=== PATIENT | female | born 1975 | race Caucasian/White ===

== ENCOUNTER 2019-06-07 21:36 | Emergency (ER) | payer OTHER ==
[2019-06-07] MEDS ORDERED: ASPIRIN 81 MG CHEWABLE TABLET ONE (22:05)
[2019-06-07] MEDS ORDERED: MORPHINE 4 MG/ML SYR ONE (22:17)
[2019-06-07 22:21] LABS: Absolute Lymphocytes (CBC) 3.1 K/uL (0.7-4.9); Basophils % 0.6 % (0-1.3); Hematocrit 40.8 % (36.0-45.0); Lymphocytes % 31.7 % (15.3-44.8); MPV 9.4 fL (7.6-11.3); RBC Red Blood Cell Count 4.36 M/uL (3.86-4.86)
[2019-06-07 22:36] LABS: Protime INR 1.02
[2019-06-07 22:39] LABS: ALT/SGPT 25 U/L (12-78); AST/SGOT 19 U/L (15-37); Albumin 3.9 g/dL (3.4-5.0); Alkaline Phosphatase 82 U/L (45-117); BUN Blood Urea Nitrogen 11 mg/dL (7-18); Bicarbonate 29 mmol/L (21-32); Bilirubin Direct < 0.1 mg/dL (0-0.2); Bilirubin Total 0.2 mg/dL (0.2-1.0); Glucose Level 97 mg/dL (74-106); Magnesium 2.2 mg/dL (1.8-2.4); NT PRO-BNP 58 pg/mL (<125); Potassium 3.8 mmol/L (3.5-5.1); Protein, Total 7.3 g/dL (6.4-8.2); Sodium Level 140 mmol/L (136-145); Troponin (Emerg Dept Use Only) < 0.02 ng/mL (0.0-0.045)
--- NOTE | 2019-06-08 01:17 | ER ---
Nurse's Notes [facility] Name: Keerthi Lea Age: 44 yrs Sex: Female : 1975 Arrival Date: 06/07/2019 Time: 21:39 Bed 23 Private MD: Reji Hendricks Diagnosis: Chest pain, unspecified Presentation: 06/07 21:47 Presenting complaint: Patient states: "I am having chest pain since 5 PM. it is causing jd3 me to have shortness of breath. this feels similar to last time and last time I was told I had a blood clot in my lungs.". Transition of care: patient was not received from another setting of care. Onset of symptoms was June 07, 2019. Risk Assessment: Do you want to hurt yourself or someone else? Patient reports no desire to harm self or others. Initial Sepsis Screen: Does the patient meet any 2 criteria? No. Patient's initial sepsis screen is negative. Does the patient have a suspected source of infection? No. Patient's initial sepsis screen is negative. Care prior to arrival: None. 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 - Social history:: Smoking status: Patient/guardian denies using tobacco, the patient reports quitting approximately 0.5 years ago. - Ebola Screening: : Patient negative for fever greater than or equal to 101.5 degrees Fahrenheit, and additional compatible Ebola Virus Disease symptoms. Screenin:51 Abuse screen: Denies threats or abuse. Denies injuries from another. Nutritional ss screening: No deficits noted. Tuberculosis screening: Never had TB. Fall Risk None identified. Assessment: 21:51 General: Appears in no apparent distress. Behavior is calm, cooperative, Denies fever, ss feeling ill, fatigue, chills. Pain: Complains of pain in chest Pain does not radiate. Pain currently is 5 out of 10 on a pain scale. Pain began today at 1730, is continuous, however goes up and down in severity Aggravated by increased activity. Neuro: Level of Consciousness is awake, alert, obeys commands, Oriented to person, place, time, situation. Neuro: Denies weakness blurred vision dizziness, numbness headache. Cardiovascular: Heart tones S1 S2 present Capillary refill < 3 seconds is brisk in bilateral fingers Patient's skin is warm and dry. Rhythm is regular. Respiratory: Breath sounds are clear bilaterally. Respiratory: Reports shortness of breath on exertion. GI: Patient currently denies abdominal pain, diarrhea, nausea, vomiting. : No signs and/or symptoms were reported regarding the genitourinary system. Denies burning with urination, urinary frequency. EENT: Oral mucosa is moist. Throat is clear. Derm: Skin is intact, is healthy with good turgor, Skin is dry, Skin is pink, warm \\T\\ dry. normal. Musculoskeletal: Circulation, motion, and sensation intact. Range of motion: intact in all extremities, Swelling absent. 22:15 Reassessment: Patient appears in no apparent distress at this time. complaining of rr5 chest pain pain score 10/10. ED provider aware with order made and carried out. 23:22 Reassessment: Patient appears in no apparent distress at this time. Patient and/or ss family updated on plan of care and expected duration. Pain level reassessed. Patient is alert, oriented x 3, equal unlabored respirations, skin warm/dry/pink. 06/08 00:15 Reassessment: [id number] husbands number. rr5 00:45 Reassessment: Patient appears in no apparent distress at this time. Patient is alert, rr5 oriented x 3, equal unlabored respirations, skin warm/dry/pink. repeat cardiac enzymes extracted and sent to laboratory. no complaints made. pain score 3/10 Patient states feeling better. Patient states symptoms have improved. 01:43 Reassessment: patient awake, alert, oriented, no complaints of pain,IV removed, jv1 discharge instructions given, work note given. Vital Signs: 06/07 21:50 BP 137 / 82; Pulse 88; Resp 17 S; Temp 98.2(O); Pulse Ox 99% on R/A; Weight 90.72 kg jd3 (R); Height 5 ft. 1 in. (154.94 cm) (R); Pain 5/10; 23:21 BP 115 / 77; Pulse 74; Resp 16; Pulse Ox 95% on R/A; ss 06/08 00:30 BP 114 / 58; Pulse 72; Resp 16; Pulse Ox 96% on R/A; Pain 3/10; rr5 01:15 BP 114 / 71; Pulse 71; Resp 18 S; Pulse Ox 95% on R/A; Pain 0/10; jv1 01:42 BP 110 / 70; Pulse 75; Resp 18 S; Pulse Ox 95% on R/A; Pain 0/10; jv1 06/07 21:50 Body Mass Index 37.79 (90.72 kg, 154.94 cm) jd3 ED Course: 06/07 21:39 Patient arrived in ED. cl3 21:40 Reji Hendricks MD is Private Physician. cl3 21:44 Addie Shen [facility]-C [facility]. snw 21:44 Chris uFnes MD is Attending Physician. snw 21:49 Triage completed. jd3 21:50 Arm band placed on. EKG completed in triage. Results shown to MD. jd3 21:51 Inserted saline lock: 20 gauge in right antecubital area, using aseptic technique. ss Blood collected. 21:52 Placed in gown. Bed in low position. Call light in reach. Side rails up X 1. Side rails jp3 up X2. Warm blanket given. Verbal reassurance given. manager monitoring on. Pulse ox on. NIBP on. 21:53 Holland Zuniga RN is Primary Nurse. rr5 21:53 EKG done, by ED staff, reviewed by Chris Funes MD. Patient maintains SpO2 saturation jp3 greater than 95% on room air. 22:35 XRAY Chest (1 view) In Process Unspecified. EDMS 06/08 00:45 Repeat lab(s) drawn. by me, sent to lab. rr5 01:15 Reji Hendricks MD is Referral Physician. snw 01:40 No provider procedures requiring assistance completed. IV discontinued, intact, jv1 bleeding controlled, No redness/swelling at site. Administered Medications: 06/07 22:08 Drug: Aspirin Chewable Tablet 324 mg Route: PO; rr5 23:10 Follow up: Response: No adverse reaction rr5 22:23 Drug: morphine 4 mg {Note: RASS 0.} Route: IVP; Site: right antecubital; rr5 23:20 Follow up: Response: No adverse reaction; RASS: Alert and Calm (0) rr5 Outcome: 06/08 01:16 Discharge ordered by MD. maddox 01:41 Discharged to home ambulatory, with significant other. jv1 01:41 Condition: stable 01:41 Discharge instructions given to patient. 01:45 Patient left the ED. jv1 Signatures: Dispatcher [employer] EDMS Addie Shen, SALES AND MARKETING DIRECTOR-C SALES AND MARKETING DIRECTOR-Csnw Rosmery Choudhary RN RN ss Breezy Victoria RN RN jd3 Duran Bell jp3 Rubi Lopez RN RN jv1 Holland Zuniga RN RN rr5 Neymar Baker cl3 Corrections: (The following items were deleted from the chart) 01:14 01:12 BP 114 / 71; Pulse 70bpm; Resp 18bpm; Spontaneous; Pulse Ox 95% RA; Temp 98.5F; rr5 Pain 0/10; rr5
--- NOTE | 2019-06-08 01:19 | EDPHYS ---
Physician Documentation [facility] Name: Keerthi Lea Age: 44 yrs Sex: Female : 1975 Arrival Date: 06/07/2019 Time: 21:39 Bed 23 Private MD: Reji Hendricks ED Physician Chris Funes HPI: 06/07 22:38 This 44 yrs old Female presents to ER via Wheelchair with complaints of Chest snw Pain. 22:38 Onset: The symptoms/episode began/occurred suddenly, at 17:00, and became persistent. snw Associated signs and symptoms: Pertinent positives: chest pain, shortness of breath. Modifying factors: The patient symptoms are alleviated by nothing. The patient has experienced a previous episode, at age 28 with PE. The patient has not recently seen a physician. 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 - Social history:: Smoking status: Patient/guardian denies using tobacco, the patient reports quitting approximately 0.5 years ago. - Ebola Screening: : Patient negative for fever greater than or equal to 101.5 degrees Fahrenheit, and additional compatible Ebola Virus Disease symptoms. ROS: 22:38 Constitutional: Negative for fever, chills, and weight loss, Eyes: Negative for injury, snw pain, redness, and discharge, ENT: Negative for injury, pain, and discharge, Neck: Negative for injury, pain, and swelling, Respiratory: Negative for shortness of breath, cough, wheezing, and pleuritic chest pain, Abdomen/GI: Negative for abdominal pain, nausea, vomiting, diarrhea, and constipation, Back: Negative for injury and pain, : Negative for injury, bleeding, discharge, and swelling, MS/Extremity: Negative for injury and deformity, Skin: Negative for injury, rash, and discoloration, Neuro: Negative for headache, weakness, numbness, tingling, and seizure. 22:38 Cardiovascular: Positive for chest pain. Exam: 22:37 Constitutional: This is a well developed, well nourished patient who is awake, alert, snw and in no acute distress. Head/Face: Normocephalic, atraumatic. Eyes: Pupils equal round and reactive to light, extra-ocular motions intact. Lids and lashes normal. Conjunctiva and sclera are non-icteric and not injected. Cornea within normal limits. Periorbital areas with no swelling, redness, or edema. ENT: Nares patent. No nasal discharge, no septal abnormalities noted. Tympanic membranes are normal and external auditory canals are clear. Oropharynx with no redness, swelling, or masses, exudates, or evidence of obstruction, uvula midline. Mucous membranes moist. Neck: Trachea midline, no thyromegaly or masses palpated, and no cervical lymphadenopathy. Supple, full range of motion without nuchal rigidity, or vertebral point tenderness. No Meningismus. Chest/axilla: Normal chest wall appearance and motion. Nontender with no deformity. No lesions are appreciated. Respiratory: Lungs have equal breath sounds bilaterally, clear to auscultation and percussion. No rales, rhonchi or wheezes noted. No increased work of breathing, no retractions or nasal flaring. Abdomen/GI: Soft, non-tender, with normal bowel sounds. No distension or tympany. No guarding or rebound. No evidence of tenderness throughout. Back: No spinal tenderness. No costovertebral tenderness. Full range of motion. Skin: Warm, dry with normal turgor. Normal color with no rashes, no lesions, and no evidence of cellulitis. MS/ Extremity: Pulses equal, no cyanosis. Neurovascular intact. Full, normal range of motion. Neuro: Awake and alert, GCS 15, oriented to person, place, time, and situation. Cranial nerves II-XII grossly intact. Motor strength 5/5 in all extremities. Sensory grossly intact. Cerebellar exam normal. Normal gait. Psych: Awake, alert, with orientation to person, place and time. Behavior, mood, and affect are within normal limits. 22:37 Cardiovascular: Rate: tachycardic, Rhythm: regular, Pulses: no pulse deficits are appreciated, Heart sounds: normal. Vital Signs: 21:50 BP 137 / 82; Pulse 88; Resp 17 S; Temp 98.2(O); Pulse Ox 99% on R/A; Weight 90.72 kg jd3 (R); Height 5 ft. 1 in. (154.94 cm) (R); Pain 5/10; 23:21 BP 115 / 77; Pulse 74; Resp 16; Pulse Ox 95% on R/A; ss 06/08 00:30 BP 114 / 58; Pulse 72; Resp 16; Pulse Ox 96% on R/A; Pain 3/10; rr5 01:15 BP 114 / 71; Pulse 71; Resp 18 S; Pulse Ox 95% on R/A; Pain 0/10; jv1 01:42 BP 110 / 70; Pulse 75; Resp 18 S; Pulse Ox 95% on R/A; Pain 0/10; jv1 06/07 21:50 Body Mass Index 37.79 (90.72 kg, 154.94 cm) jd3 MDM: 06/07 21:44 Patient medically screened. snw 22:39 Data reviewed: vital signs, nurses notes. Data interpreted: Pulse oximetry: on room air snw is 99 %. Interpretation: normal. Counseling: I had a detailed discussion with the patient and/or guardian regarding: the historical points, exam findings, and any diagnostic results supporting the discharge/admit diagnosis, lab results, radiology results. ED course: pt was on anticoagulants for 18 or 19 years and then 3 years ago genetic studies were performed and pt was negative and taken off anticoagulants. Pt states she quit smoking 5 months ago. 06/08 00:13 Response to treatment: the patient's symptoms have markedly improved after treatment. snw 06/07 21:57 Order name: Basic Metabolic Panel; Complete Time: 22:41 snw 06/07 21:57 Order name: CBC with Diff; Complete Time: 22:35 snw 06/07 21:57 Order name: LFT's; Complete Time: 22:41 snw 06/07 21:57 Order name: Magnesium; Complete Time: 22:41 snw 06/07 21:57 Order name: NT PRO-BNP; Complete Time: 22:41 snw 06/07 21:57 Order name: PT-INR; Complete Time: 22:37 snw 06/07 21:57 Order name: Troponin (emerg Dept Use Only); Complete Time: 22:41 snw 06/07 21:57 Order name: XRAY Chest (1 view) snw 06/07 21:57 Order name: EKG; Complete Time: 21:59 snw 06/07 21:57 Order name: Cardiac monitoring; Complete Time: 22:00 snw 06/07 21:57 Order name: DD; Complete Time: 22:37 snw 06/08 00:33 Order name: Troponin (emerg Dept Use Only); Complete Time: 01:12 rr5 06/07 21:57 Order name: EKG - Nurse/Tech; Complete Time: 22:00 snw 06/07 21:57 Order name: IV Saline Lock; Complete Time: 22:00 snw 06/07 21:57 Order name: Labs collected and sent; Complete Time: 22:00 snw 06/07 21:57 Order name: O2 Per Protocol; Complete Time: 22:00 snw 06/07 21:57 Order name: O2 Sat Monitoring; Complete Time: 22:01 snw 06/08 00:13 Order name: Repeat Cardiac Enzymes at: 0045 with 2nd EKG please; Complete Time: 00:41 snw Administered Medications: 06/07 22:08 Drug: Aspirin Chewable Tablet 324 mg Route: PO; rr5 23:10 Follow up: Response: No adverse reaction rr5 22:23 Drug: morphine 4 mg {Note: RASS 0.} Route: IVP; Site: right antecubital; rr5 23:20 Follow up: Response: No adverse reaction; RASS: Alert and Calm (0) rr5 Disposition: 06/08/19 01:16 Discharged to Home. Impression: Chest pain, unspecified. - Condition is Stable. - Discharge Instructions: Nonspecific Chest Pain, Gastroesophageal Reflux Disease, Adult, Aspirin and Your Heart. - Work release form, Medication Reconciliation Form, Thank You Letter, Antibiotic Education, Prescription Opioid Use form. - Follow up: Reji Hendricks MD; When: 1 - 2 days; Reason: Recheck today's complaints, Continuance of care, Re-evaluation by your physician. Follow up: Emergency Department; When: As needed; Reason: Worsening of condition. Signatures: Dispatcher [employer] EDAddie Reyes FNP-C WET PROCESS MILLER HEAD-Csnw Breezy Victoria RN RN jd3 Rubi Lopez RN RN jv1 Holland Zuniga RN RN rr5 Corrections: (The following items were deleted from the chart) 06/08 01:45 01:16 06/08/2019 01:16 Discharged to Home. Impression: Chest pain, unspecified. jv1 Condition is Stable. Forms are Medication Reconciliation Form, Thank You Letter, Antibiotic Education, Prescription Opioid Use. Follow up: Reji Hendricks; When: 1 - 2 days; Reason: Recheck today's complaints, Continuance of care, Re-evaluation by your physician. Follow up: Emergency Department; When: As needed; Reason: Worsening of condition. snw
--- NOTE | 2019-06-08 08:22 | RAD REPORT ---
EXAM DESCRIPTION: RAD - Chest Single View - 06/07/2019 10:31 pm CLINICAL HISTORY: Chest pain, shortness of breath COMPARISON: April 2018 TECHNIQUE: AP portable chest image was obtained 2227 hours . FINDINGS: No focal lung parenchymal process. Interstitial pattern is similar or less prominent than seen 1 year earlier. Heart and vasculature are normal. No measurable pleural effusion and no pneumoth orax. No acute bony abnormality seen. No acute aortic findings suspected. IMPRESSION: No acute cardiopulmonary process.
--- NOTE | 2019-06-08 11:36 | EKG ---
Test Date: 2019-06-08 Test Time: 00:38:33 Squad Boss: RR MEASUREMENT RESULTS: Intervals: Rate: 69 [place]: 162 QRSD: 96 QT: 416 QTc: 445 [place]: P: 55 [place]: 162 QRS: 61 T: 26 INTERPRETIVE STATEMENTS: Normal sinus rhythm Normal ECG No previous ECG available for comparison Electronically Signed On 06-08-19 11:34:38 CDT by Lee Bruner
--- NOTE | 2019-06-08 11:37 | EKG ---
Test Date: 2019-06-07 Test Time: 21:46:45 Horticultural Services Supervisor: KANDIS MEASUREMENT RESULTS: Intervals: Rate: 82 [place]: 152 QRSD: 90 QT: 360 QTc: 420 [place]: P: 53 MI: 152 QRS: 62 T: 15 INTERPRETIVE STATEMENTS: Normal sinus rhythm Normal ECG No previous ECG available for comparison Electronically Signed On 06-08-19 11:34:43 CDT by Lee Bruner
== END 2019-06-08 01:45 | disposition home or self-care (01) ==
LOC: ER 21:36
DX: R07.9 Chest pain, unspecified (principal); R06.02 Shortness of breath
CPT/HCPCS: 36415; 71045; 80048; 80076; 83735; 83880; 84484; 85025; 85379; 85610; 93005; 96374; 99285